=== PATIENT | female | born 1980 | race Caucasian/White ===

== ENCOUNTER 2020-11-14 16:28 | Emergency (ER) | payer OTHER ==
[~2020-11-14] VITALS: Ht 157.5 cm; Wt 75.8 kg
== END 2020-11-14 18:20 | disposition home or self-care (01) ==
LOC: ED 16:28
DX: G43.109 Migraine with aura, not intractable, without status migrainosus (principal)
CPT/HCPCS: 99283

== ENCOUNTER 2022-01-24 16:05 | Emergency (ER) | payer OTHER ==
[~2022-01-24] VITALS: Ht 157.5 cm; Wt 65.8 kg
[2022-01-24] MEDS ORDERED: VENTOLIN HFA18 GM INH (17:04)
[2022-01-24] MEDS ORDERED: ESCITALOPRAM OX10 MG PO (17:05)
[2022-01-24] MEDS ORDERED: HYDROXYZINE HCL25 MG PO (17:05)
[2022-01-24] MEDS ORDERED: ATIVAN1 MG PO (18:40)
[2022-01-24] MEDS ORDERED: ONDANSETRON ODT8 MG PO (18:40)
== END 2022-01-24 18:59 | disposition home or self-care (01) ==
LOC: ED 16:05
DX: F41.9 Anxiety disorder, unspecified (principal); B34.9 Viral infection, unspecified; Z20.822 Contact with and (suspected) exposure to COVID-19
CPT/HCPCS: 36415; 80053; 84703; 85025; 85060; 87502; 96374; 96375; 99283-25; C9803; J2060; J2405; J7030; U0003